=== PATIENT | male | born 1995 | race Caucasian/White ===

== ENCOUNTER 2017-01-02 09:55 | Emergency (ER) | payer SELFPAY ==
[2017-01-02] MEDS ORDERED: CEFTRIAXONE 1 GM VIAL ONE (11:25)
== END 2017-01-02 11:50 | disposition home or self-care (01) ==
LOC: ER 09:55
DX: N30.00 Acute cystitis without hematuria (principal); F17.200 Nicotine dependence, unspecified, uncomplicated
CPT/HCPCS: 81001; 87088; 87491; 87591; 96372